=== PATIENT | male | born 1960 | race Caucasian/White ===

== ENCOUNTER 2018-06-25 07:09 | Emergency (ER) | payer MEDICAID ==
[~2018-06-25] VITALS: Ht 175.3 cm; Wt 72.7 kg
[2018-06-25 08:59] VITALS: BP 142/93
== END 2018-06-25 10:02 | disposition home or self-care (01) ==
LOC: EMS 07:09
DX: G62.9 Polyneuropathy, unspecified (principal); M79.671 Pain in right foot; M79.672 Pain in left foot; F17.210 Nicotine dependence, cigarettes, uncomplicated; Z59.0 Homelessness